=== PATIENT | female | born 1985 | race Two or more races ===

== ENCOUNTER 2018-03-26 15:30 | Inpatient (IN) | payer OTHER ==
[~2018-03-26] VITALS: Ht 157.5 cm; Wt 78.5 kg
[2018-04-16] MEDS ORDERED: PRENATAL 19 TA1 EACH PO (06:58)
== END 2018-04-18 14:43 | disposition home or self-care (01) | DRG 775 ==
LOC: SURH 15:30 → LDR 04-16 05:56 → OB/GYN 04-16 16:25 → SURH 04-18 15:30
PROC: 0KQM0ZZ Repair Perineum Muscle, Open Approach (ICD-10-PCS; principal; 2018-04-16)
PROC: 10E0XZZ Delivery of Products of Conception, External Approach (ICD-10-PCS; 2018-04-16)
PROC: 3E033VJ Introduction of Other Hormone into Peripheral Vein, Percutaneous Approach (ICD-10-PCS; 2018-04-16)
PROC: 4A1HXCZ Monitoring of Products of Conception, Cardiac Rate, External Approach (ICD-10-PCS; 2018-04-16)
PROC: 4A033R1 Measurement of Arterial Saturation, Peripheral, Percutaneous Approach (ICD-10-PCS; 2018-04-16)
DX: O70.1 Second degree perineal laceration during delivery (principal); Z37.0 Single live birth; Z3A.39 39 weeks gestation of pregnancy

== ENCOUNTER 2020-03-15 09:15 | Emergency (ER) | payer OTHER ==
[~2020-03-15] VITALS: Ht 157.5 cm; Wt 76.2 kg
[~2020-03-15 09:15] MED LIST: PRENATAL 19 TA1 EACH PO
[2020-03-15] MEDS ORDERED: DUI500 (09:24)
[2020-03-15] MEDS ORDERED: [UNRECOGNIZED DRUG - OTHER] (09:24)
== END 2020-03-15 17:39 | disposition home or self-care (01) ==
LOC: ER 09:15
DX: R21 Rash and other nonspecific skin eruption (principal); R60.0 Localized edema; R00.0 Tachycardia, unspecified; T78.2XXA Anaphylactic shock, unspecified, initial encounter; T78.49XA Other allergy, initial encounter; X58.XXXA Exposure to other specified factors, initial encounter; Z03.818 Encounter for observation for suspected exposure to other biological agents ruled out